=== PATIENT | male | born 1980 | race Caucasian/White ===

== ENCOUNTER 2021-05-24 15:09 | Emergency (ER) | payer OTHER, MEDICAID, SELFPAY ==
[2021-05-24] VITALS (9 sets, daily range): BP systolic 141–179; BP diastolic 64–93; PULSE 71–98; RESP 15–24; TEMP 36.9; O2SAT 97–99; BMI 23.1
--- NOTE | 2021-05-24 15:27 | DI.RAD.S_ITS ---
PROCEDURE: XR CHEST 1V INDICATIONS: chest pain TECHNIQUE: One view of the chest was acquired. COMPARISON: [facility], CT, PE STUDY (CTA CHEST), 07/10/2013, 8:49. [facility], CR, CHEST 2 VIEW, 07/10/2013, 7:03. [facility], CR, CHEST 2 VIEW, 07/02/2016, 12:43. FINDINGS: Surgical changes and devices: None. Lungs and pleura: Lungs are clear. No pleural effusions or pneumothorax can be seen. However, the inferior-most left costophrenic angle is not within the field of view of this study. Mediastinum: Mediastinal contours appear normal. Heart size is normal. Bones and chest wall: No suspicious bony lesions. Overlying soft tissues appear unremarkable. IMPRESSION: Limited portable chest radiograph, without an acute abnormality seen. Dictated by: Stan Dent M.D. on 05/24/2021 at 14:59 Approved by: Stan Dent M.D. on 05/24/2021 at 15:01
[2021-05-24 15:56] LABS: Add Manual Diff / Slide Review NO; Basophils Absolute Auto 100 /uL (0-100); Basophils Percent Auto 0.8 % (0-2); Eosinophils Absolute Auto 100 /uL (0-450); Eosinophils Percent Auto 0.9 % (2-4); Hematocrit 26.9 % (41-53); Hemoglobin 9.3 g/dL (13.5-17.5); Lymphocytes Absolute Auto 2900 /uL (1100-4500); Lymphocytes Percent Auto 36.6 % (25-40); Mean Corpuscular HGB Conc 34.5 % (30-36); Mean Corpuscular Hemoglobin 30.4 PG (26-34); Mean Corpuscular Volume 88.2 fL (80-100); Monocytes Absolute Auto 700 /uL (0-900); Monocytes Percent Auto 8.9 % (3-14); Neutrophils Absolute Auto 4200 /uL (1500-7000); Neutrophils Percent Auto 52.8 % (50-75); Platelet Count 265 X10^3/uL (150-400); Red Blood Cell Count 3.05 X10^6/uL (4.5-5.9); Red Cell Distribution Width 13.3 % (11.6-14.8)
[2021-05-24 16:03] LABS: Alanine Aminotransferase 22 IU/L (<50); Albumin 4.1 g/dL (3.5-5.0); Albumin Globulin Ratio 1.6 (1.0-2.8); Alkaline Phosphatase 76 U/L (38-126); Aspartate Aminotransferase 26 IU/L (17-59); BUN Creatinine Ratio 21.3 (6-22); Bilirubin Total 0.2 mg/dL (0.2-1.3); Blood Urea Nitrogen 19 mg/dL (9-20); Calcium 8.6 mg/dL (8.4-10.2); Carbon Dioxide 27 mmol/L (22-32); Chloride 107 mmol/L (98-107); Creatine Kinase 54 U/L (55-170); Estimated Glomerular Filt Rate > 60.0 mL/min (>60); Globulin 2.6 g/dL (1.7-4.1); Glucose 108 mg/dL (70-100); HEMOLYSIS < 15 (0-50); Lipase 104 U/L (23-300); Potassium 3.5 mmol/L (3.4-5.1); Sodium 137 mmol/L (137-145); Total Protein 6.7 g/dL (6.3-8.2)
[2021-05-24 16:15] LABS: Troponin I < 0.012 ng/mL (0.01-0.034)
[2021-05-24] MEDS: MAG HYDROX/ALUMINUM/SIMETH SUS 20 ML, LIDOCAINE VISCOUS 2% 15 ML PO (18:10)
--- NOTE | 2021-05-24 21:04 | ED_ITS ---
HPI - Chest Pain <ADOLFO Escalera - Last Filed: 05/24/21 21:22> General Chief Complaint: Chest Pain Stated Complaint: LOW GRADE CHEST PAIN Time Seen by Provider: 05/24/21 17:23 Source: patient Mode of arrival: Ambulatory Limitations: no limitations History of Present Illness HPI narrative: 40-year-old male presents to the ED after having an episode of chest pain while having an anxiety attack a couple days ago, and reporting that he has mild epigastric pain that recurs every time he is anxious. He states that he has had mild upper chest pain for about a month and a half. He says that he does not have these symptoms with exercise, or exerting himself. He denies any diaphoresis, nausea, vomiting, shortness of breath, or feeling faint. He reports that he has a family history of congestive heart failure and he is concerned that he might be having ?heart symptoms?. He reports that he has a history of heartburn and the pain is similar, although during his panic attack it was different. He endorses that he has a history of alcohol abuse, pancreatitis, and opioid abuse which are not current problems that he has. He denies dysuria, any blood in his stool, or any dizziness. Related Data Home Medications Medication Instructions Recorded Confirmed No Known Home Medications 05/24/21 05/24/21 Allergies Allergy/AdvReac Type Severity Reaction Status Date / Time No Known Drug Allergies Allergy Verified 05/24/21 15:34 Review of Systems <ADOLFO Escalera - Last Filed: 05/24/21 21:22> Review of Systems Narrative: General: denies fever, chills Head/Neck: denies headache, neck pain Eyes: denies visual changes, eye pain Cardio: denies chest pressure, palpitations, endorses heartburn and mild upper chest pain with anxiety Respiratory: denies shortness of breath, cough GI: denies abdominal pain, nausea, vomiting, or diarrhea : denies dysuria, hematuria MSK: denies joint pain, muscle weakness Skin: denies rash, itching Neuro: denies any numbness, tingling Patient History <ADOLFO Escalera - Last Filed: 05/24/21 21:22> Social History Smoking Status: Never smoker Smoking Status: Never smoker alcohol intake frequency: 0-2 drinks per day Substance Use Type: does not use Exam <ADOLFO Escalera - Last Filed: 05/24/21 21:22> Narrative Exam Narrative: Independently reviewed vitals signs and nursing notes. General: Awake, alert, nontoxic, no cardiorespiratory distress, +anxiety Head/Neck: Atraumatic, neck full range of motion Eyes: EOMI, conjunctiva normal Nose: nares patent, no rhinorrhea Mouth/Throat: moist mucus membranes, posterior pharynx normal, no oral lesions Cardio: Regular rate and rhythm, no peripheral edema, S1, S2 without adventiti ous sounds Respiratory: respirations unlabored without wheezing, stridor, or rales. No retractions. GI: Abdomen soft, nontender MSK: Moves all extremities, neurovascularly intact Skin: Normal capillary refill, no rash Neuro: Normal speech and cognition, normal gait Initial Vital Signs Initial Vital Signs: Vital Signs Temperature 98.5 F 05/24/21 15:20 Pulse Rate 98 H 05/24/21 15:20 Respiratory Rate 18 05/24/21 15:20 Blood Pressure 179/82 H 05/24/21 15:20 Pulse Oximetry 99 05/24/21 15:20 <Ju Gibson DO - Last Filed: 05/29/21 07:20> Initial Vital Signs Initial Vital Signs: Vital Signs Temperature 98.5 F 05/24/21 15:20 Pulse Rate 98 H 05/24/21 15:20 Respiratory Rate 18 05/24/21 15:20 Blood Pressure 179/82 H 05/24/21 15:20 Pulse Oximetry 99 05/24/21 15:20 Scores <ADOLFO Escalera - Last Filed: 05/24/21 21:22> HEART Score Heart Score history: Slightly Suspicious Heart Score EKG: Normal Heart Score Age: < 45 years old Heart Score risk factors: No known risk factors Heart Score troponin: < or = to normal limit Heart Score Total: 0 <Ju Gibson DO - Last Filed: 05/29/21 07:20> HEART Score Heart Score Total: 0 Course <ADOLFO Escalera - Last Filed: 05/24/21 21:22> Orders Ordered: Discontinued Medications Al Hydrox/Mg Hydrox/Simethicone 20 ml/ Lidocaine HCl 15 ml 0 ml PO NOW ONE Stop: 05/24/21 17:59 Last Admin: 05/24/21 18:10 Dose: 35 ml Documented by: ANKUSH Vital Signs Vital signs: Vital Signs - 8 hr 05/24/21 15:20 05/24/21 15:51 05/24/21 16:00 Temperature 98.5 F Pulse Rate 98 H 79 76 Respiratory Rate 18 22 19 Blood Pressure 179/82 H Pulse Oximetry 99 97 98 05/24/21 16:30 05/24/21 16:50 05/24/21 16:51 Temperature Pulse Rate 84 79 Respiratory Rate 24 15 Blood Pressure 145/79 H 145/79 H Pulse Oximetry 99 99 05/24/21 17:00 05/24/21 17:30 05/24/21 18:00 Temperature Pulse Rate 78 74 71 Respiratory Rate 20 17 18 Blood Pressure 141/64 H 155/93 H 142/88 H Pulse Oximetry 98 99 97 <Ju Gibson DO - Last Filed: 05/29/21 07:20> Orders Ordered: Discontinued Medications Al Hydrox/Mg Hydrox/Simethicone 20 ml/ Lidocaine HCl 15 ml 0 ml PO NOW ONE Stop: 05/24/21 17:59 Last Admin: 05/24/21 18:10 Dose: 35 ml Documented by: ANKUSH Vital Signs Vital signs: Vital Signs - 8 hr 05/24/21 15:20 05/24/21 15:51 05/24/21 16:00 Temperature 98.5 F Pulse Rate 98 H 79 76 Respiratory Rate 18 22 19 Blood Pressure 179/82 H Pulse Oximetry 99 97 98 05/24/21 16:30 05/24/21 16:50 05/24/21 16:51 Temperature Pulse Rate 84 79 Respiratory Rate 24 15 Blood Pressure 145/79 H 145/79 H Pulse Oximetry 99 99 05/24/21 17:00 05/24/21 17:30 05/24/21 18:00 Temperature Pulse Rate 78 74 71 Respiratory Rate 20 17 18 Blood Pressure 141/64 H 155/93 H 142/88 H Pulse Oximetry 98 99 97 MDM - Chest Pain <ADOLFO Escalera - Last Filed: 05/24/21 21:22> Lab Data Result diagrams: 05/24/21 15:44 05/24/21 15:44 Labs: Lab Results 05/24/21 05/24/21 Range/Units 15:44 15:44 WBC 8.0 (4.5-11.0) X10^3/uL RBC 3.05 L (4.5-5.9) X10^6/uL Hgb 9.3 L (13.5-17.5) g/dL Hct 26.9 L (41-53) % MCV 88.2 (80-100) fL MCH 30.4 (26-34) PG MCHC 34.5 (30-36) % RDW 13.3 (11.6-14.8) % Plt Count 265 (150-400) X10^3/uL Neut % (Auto) 52.8 (50-75) % Lymph % (Auto) 36.6 (25-40) % [place] % (Auto) 8.9 (3-14) % Eos % (Auto) 0.9 L (2-4) % Baso % (Auto) 0.8 (0-2) % Neut # (Auto) 4200 (2457-0297) /uL Lymph # (Auto) 2900 (1773-7756) /uL [place] # (Auto) 700 (0-900) /uL Eos # (Auto) 100 (0-450) /uL Baso # (Auto) 100 (0-100) /uL Sodium 137 (137-145) mmol/L Potassium 3.5 (3.4-5.1) mmol/L Chloride 107 (98-107) mmol/L Carbon Dioxide 27 (22-32) mmol/L BUN 19 (9-20) mg/dL Creatinine 0.89 (0.66-1.25) mg/dL Estimated GFR > 60.0 (>60) mL/min BUN/Creatinine Ratio 21.3 (6-22) Glucose 108 H (70-100) mg/dL Calcium 8.6 (8.4-10.2) mg/dL Total Bilirubin 0.2 (0.2-1.3) mg/dL AST 26 (17-59) IU/L ALT 22 (<50) IU/L Alkaline Phosphatase 76 (38-126) U/L Total Creatine Kinase 54 L (55-170) U/L CK-MB (CK-2) TNP CK-MB (CK-2) Rel Index TNP Troponin I < 0.012 (0.01-0.034) ng/mL Total Protein 6.7 (6.3-8.2) g/dL Albumin 4.1 (3.5-5.0) g/dL Globulin 2.6 (1.7-4.1) g/dL Albumin/Globulin Ratio 1.6 (1.0-2.8) Lipase 104 (23-300) U/L Imaging Data Chest x-ray: Radiologist's Impression: PROCEDURE:? XR CHEST 1V ? INDICATIONS:? chest pain ? TECHNIQUE:? One view of the chest was acquired.? ? COMPARISON:? [facility], CT, PE STUDY (CTA CHEST), 07/10/2013, 8:49.? [facility], CR, CHEST 2 VIEW, 07/10/2013, 7:03.? [facility], CR, CHEST 2 VIEW, 07/02/2016, 12:43. ? FINDINGS:? ? Surgical changes and devices:? None.? ? Lungs and pleura:? Lungs are clear.? No pleural effusions or pneumothorax can be seen.? However, the inferior-most left costophrenic angle is not within the field of view of this study. ? Mediastinum:? Mediastinal contours appear normal.? Heart size is normal.? ? Bones and chest wall:? No suspicious bony lesions.? Overlying soft tissues appear unremarkable.? IMPRESSION:? Limited portable chest radiograph, without an acute abnormality seen. ? ? Dictated by: Stan Dent M.D. on 05/24/2021 at 14:59 ? ? Approved by: Stan Dent M.D. on 05/24/2021 at 15:01 ? ECG Data Interpretation: Normal sinus rhythm without ST changes MDM Narrative Medical decision making narrative: 40-year-old male history of pancreatitis presents to the ED for chest pain that occurred a week ago during an anxiety attack, he is concerned that he has had very mild chest pain similar to heartburn for about 1 and half months. His history and exam are reassuring, today he is anxious, he does not have chest pain currently, he does not have nausea or vomiting, diaphoresis, shortness of breath, chest pressure, or any other signs or symptoms that this is cardiac in nature. His 12 lead, chest x- ray, and lab work are all reassuring as well, his troponin was negative, his heart score is 0. He received a GI cocktail after discussion about his history of heartburn, he states that he normally takes Prilosec but has not been taking any for a while. On further discussion about his anxiety he revealed that he has struggled with coping mechanisms in the past and tends to panic which gives him this feeling in his chest. Healthy coping strategies were discussed at length, he was hesitant to establish primary care because he says he is very stubborn. Lengthy discussion about health maintenance including mental and physical health and regular primary care visits were encouraged. This is most likely anxiety and heartburn, less likely possibilities include angina although not likely given this does not occur during exertion or any physical activity and only during stressful occasions. Patient is appropriate and amenable to discharge home. Vital signs are stable on repeat examination is unremarkable. Patient has been informed of results. Patient has been given strict return to ER precautions for any new or worsening symptoms. Patient understands to follow up closely with outpatient providers as instructed. Patient understands plan and agrees to discharge home. All questions and concerns answered at this time. <Ju Gibson, DO - Last Filed: 05/29/21 07:20> Lab Data Labs: Lab Results 05/24/21 05/24/21 Range/Units 15:44 15:44 WBC 8.0 (4.5-11.0) X10^3/uL RBC 3.05 L (4.5-5.9) X10^6/uL Hgb 9.3 L (13.5-17.5) g/dL Hct 26.9 L (41-53) % MCV 88.2 (80-100) fL MCH 30.4 (26-34) PG MCHC 34.5 (30-36) % RDW 13.3 (11.6-14.8) % Plt Count 265 (150-400) X10^3/uL Neut % (Auto) 52.8 (50-75) % Lymph % (Auto) 36.6 (25-40) % [place] % (Auto) 8.9 (3-14) % Eos % (Auto) 0.9 L (2-4) % Baso % (Auto) 0.8 (0-2) % Neut # (Auto) 4200 (4141-3346) /uL Lymph # (Auto) 2900 (6480-3993) /uL [place] # (Auto) 700 (0-900) /uL Eos # (Auto) 100 (0-450) /uL Baso # (Auto) 100 (0-100) /uL Sodium 137 (137-145) mmol/L Potassium 3.5 (3.4-5.1) mmol/L Chloride 107 (98-107) mmol/L Carbon Dioxide 27 (22-32) mmol/L BUN 19 (9-20) mg/dL Creatinine 0.89 (0.66-1.25) mg/dL Estimated GFR > 60.0 (>60) mL/min BUN/Creatinine Ratio 21.3 (6-22) Glucose 108 H (70-100) mg/dL Calcium 8.6 (8.4-10.2) mg/dL Total Bilirubin 0.2 (0.2-1.3) mg/dL AST 26 (17-59) IU/L ALT 22 (<50) IU/L Alkaline Phosphatase 76 (38-126) U/L Total Creatine Kinase 54 L (55-170) U/L CK-MB (CK-2) TNP CK-MB (CK-2) Rel Index TNP Troponin I < 0.012 (0.01-0.034) ng/mL Total Protein 6.7 (6.3-8.2) g/dL Albumin 4.1 (3.5-5.0) g/dL Globulin 2.6 (1.7-4.1) g/dL Albumin/Globulin Ratio 1.6 (1.0-2.8) Lipase 104 (23-300) U/L ECG Data Interpretation: Normal sinus rhythm without ST changes [place]: Normal sinus rhythm rate 84 FL interval 158 QRS [address] changes no T-wave inversions similar to previous EKG no signs of ischemia Discharge Plan Departure Patient Disposition: Home Clinical Impression: History of pancreatitis, Anxiety about health Chest pain Qualifiers: Chest pain type: unspecified Qualified Code(s): R07.9 - Chest pain, unspecified Instructions: DI for Anxiety -- Adult, DI for Chest Pain Activity Restrictions/Additional Instructions: *You have been diagnosed with non-cardiac chest pain. All of your test today have come back very reassuring. Your chest x-ray shows that you have a normal size heart and clear lungs. Your lab work is unremarkable for abnormality. Your EKG shows a normal sinus rhythm without any signs of a recent heart attack. Hopefully the GI cocktail helps with your symptoms. It is important to establish primary care as we discussed and to continue to see them every year. Continue to make good lifestyle choices regarding your diet, drugs and alcohol. Consider ways to help yourself in stressful times and the coping mechanisms that you use. *What to do: *Please continue to take your regular medications as directed. [ ] New medication prescriptions sent to your pharmacy: [ ] [ ] New medication written as a paper prescription [x ] No new medications given *Please follow up with your primary care provider in 2-3 days, call for an appointment. Let them know you were seen in the Emergency Department and that we ask that you be seen in follow up. We will electronically transmit a record of today's note if your PCP is in our system *If you do not have a primary care provider please contact the [facility] Resource line at [phone]. They will ask some questions about your medical history and help get you set up with a doctor in the community. *Return to Emergency Department if you should have any new, worsening or concerning symptoms, such as [fever greater than 101F, chills, worsening pain, persistent vomiting or other bothersome symptoms] Prescriptions: No Action No Known Home Medications RF: 0 Referrals: [facility] [Provider Group] [facility] [Provider Group] Burton Delacruz MD [Primary Care Provider] - <Ju Gibson DO - Last Filed: 05/29/21 07:20> [facility] Delmy Attestation: I was immediately available in the department for consultation. Documentation has been reviewed. I agree with assessment and plan.
== END 2021-05-24 18:25 | disposition home or self-care (01) ==
PROVIDERS: Emergency Medicine; Emergency Provider Nurse Practitioner Critical Care Medicine; Family Provider Family Medicine; PCP Family Medicine
DX: R07.9 Chest pain, unspecified (principal); F41.9 Anxiety disorder, unspecified; R10.13 Epigastric pain; Z87.19 Personal history of other diseases of the digestive system
CPT/HCPCS: 36415; 71045; 80053; 82550; 83690; 84484; 85025; 93005; 99284

== ENCOUNTER → 2024-09-21 08:47 | Outpatient (CLI) | payer OTHER, SELFPAY ==
--- NOTE | 2024-09-21 08:48 | DI.RAD.S_ITS ---
PROCEDURE: XR CHEST 2V INDICATIONS: cough TECHNIQUE: 2 views of the chest were acquired. COMPARISON: [facility], CR, XR CHEST 1V, 05/24/2021, 15:27. FINDINGS: Surgical changes and devices: None. Lungs and pleura: Lungs are clear. No pleural effusions or pneumothorax. Mediastinum: Mediastinal contours are normal. Heart size is normal. Bones and chest wall: No suspicious bony abnormalities. Soft tissues appear unremarkable. IMPRESSION: No acute cardiopulmonary abnormality is seen. Dictated by: Chan Hurley M.D. on 09/21/2024 at 9:49 Approved by: Chan Hurley M.D. on 09/21/2024 at 9:50
== END ==
PROVIDERS: Family Provider Family Medicine; Referring Provider Physician Assistant Surgical; Visit Provider Physician Assistant Surgical
DX: R05.9 Cough, unspecified (principal)
CPT/HCPCS: 71046